=== PATIENT | female | born 1935 | race Caucasian/White ===

== ENCOUNTER 2019-10-03 08:01 | Outpatient (CLI) | payer MEDICARE, SELFPAY ==
--- NOTE | ~2019-10-03 | CT_ITS ---
EXAMINATION: CT abdomen pelvis w con EXAM DATE: 10/03/2019 08:37 INDICATION: Pyelonephritis. TECHNIQUE: Spiral CT of the abdomen and pelvis was performed following intravenous injection of 100 m L Omnipaque 350. Axial, coronal and sagittal images were reviewed. The dose-length product (DLP) fo r this examination was 367.56 mGy-cm. The exposure was tailored according to patient size (auto mA e xposure control), and iterative reconstruction (ASIR) was used as additional dose reduction technique . Comparison is made to prior examination from 07/11/2015. FINDINGS: The liver, spleen, adrenal glands and pancreas are unremarkable. The gallbladder is disten ded but otherwise unremarkable. There is no biliary duct dilation. Kidneys enhance symmetrically. Lo bular renal contours with regions of cortical scarring bilaterally probably from prior episodes of in fection. Mild enhancement of the urothelium to both renal pelvises without adjacent inflammation. A s mall region of right renal decreased cortical enhancement posteriorly, without volume loss as seen in the regions of scarring, and similar appearing region in the lower pole of the left kidney anteriorl y. No adjacent inflammation, but resolving bilateral pyelonephritis would explain this finding and th e mild renal urothelial enhancement. Uterus and bladder are unremarkable. There is no retroperitonea l or pelvic lymphadenopathy. There is mild scattered arteriosclerotic disease. The appendix is normal. The stomach and small bowel are unremarkable. There is moderate amount of c olonic stool. No free intraperitoneal gas. The heart is normal in size. There are no pericardial or pleural effusions. There is right basilar focal severe bronchiectasis involving the medial segmen t. There is right middle lobe granuloma. There are no osteoblastic or osteolytic lesions identified. There is small umbilical fat-containing hernia. IMPRESSION: 1. Mild bilateral renal pelvic urothelial enhancement, along with small ill-defined regions of decre ased renal cortical enhancement. Resolving or partially treated bilateral pyelonephritis would explai n these findings. 2. Regions of bilateral renal cortical scarring likely from prior episodes of pyelonephritis. 3. Right basilar medial segmental bronchiectasis. 4. Small umbilical hernia. Reviewed, dictated and finalized at location B. IMPRESSION: 1. Mild bilateral renal pelvic urothelial enhancement, along with small ill-de fined regions of decreased renal cortical enhancement. Resolving or partially t reated bilateral pyelonephritis would explain these findings. 2. Regions of bilateral renal cortical scarring likely from prior episodes of pyelonephritis. 3. Right basilar medial segmental bronchiectasis. 4. Small umbilical hernia.
[2019-10-03 08:26] LABS: Estimated Glomerular Filt Rate 53
== END 2019-10-03 08:02 | disposition home or self-care (01) ==
LOC: ANHIMG 08:03
DX: N12 Tubulo-interstitial nephritis, not specified as acute or chronic (principal); K42.9 Umbilical hernia without obstruction or gangrene; R91.8 Other nonspecific abnormal finding of lung field
CPT/HCPCS: 36415; 74177; Q9967

== ENCOUNTER 2019-12-02 08:48 | Outpatient (CLI) | payer MEDICARE, SELFPAY ==
--- NOTE | ~2019-12-02 | CT_ITS ---
EXAMINATION: CT abdomen pelvis w con DATE: 12/02/2019 09:35 INDICATION: Pyelonephritis TECHNIQUE: Computed tomography (CT) of the abdomen and pelvis was performed with 100 cc Omnipaque 350 intravenous contrast. The dose-length product was 419.39 mGy-cm. Automated exposure control and iter ative reconstruction technique were employed. COMPARISON: CT dated 10/03/2019. FINDINGS: There is right lower lobe bronchiectasis. There is bibasilar atelectasis. Calcified granulo ma right middle lobe. Heart size upper normal. No significant pleural or pericardial effusion. There is bilateral renal cortical scarring with multiple bilateral renal cysts. No definite evidence for residual pyelonephritis. Bladder is unremarkable. Fatty infiltration of the liver. Gallbladder is present. Nonobstructive bowel gas pattern. Small fat- containing umbilical hernia. Mild lumbar spondylosis.There is a 9 mm partially visualized right breas t nodule. IMPRESSION: 1. No acute abdominal abnormality. No definite evidence for residual pyelonephritis. 2: 9 mm right breast nodule. Correlation with diagnostic mammogram and right breast ultrasound recom mended. 3: Bilateral renal cortical thinning/scarring with bilateral renal cysts. 4: Right lower lobe bronchiectasis. Reviewed, dictated and finalized at location B. IMPRESSION: 1. No acute abdominal abnormality. No definite evidence for residual pyelonephr itis. 2: 9 mm right breast nodule. Correlation with diagnostic mammogram and right b reast ultrasound recommended. 3: Bilateral renal cortical thinning/scarring with bilateral renal cysts. 4: Right lower lobe bronchiectasis.
[2019-12-02 09:27] LABS: Estimated Glomerular Filt Rate 53
== END 2019-12-02 08:49 | disposition home or self-care (01) ==
DX: N10 Acute pyelonephritis (principal); R91.8 Other nonspecific abnormal finding of lung field
CPT/HCPCS: 74177; Q9967

== ENCOUNTER 2019-12-27 12:47 | Outpatient (CLI) | payer MEDICARE, SELFPAY ==
--- NOTE | ~2019-12-27 | MM_ITS ---
EXAMINATION: MM diagnostic dominic RT w adrian HISTORY: Right breast mass identified on CT TECHNIQUE: Craniocaudal, mediolateral, and mediolateral oblique 3-D tomosynthesis images of the right breast were performed and synthetic 2-D images were generated. CAD analysis was submitted and interp reted. COMPARISON: Prior mammograms dating back to 10/16/2007 BREAST PARENCHYMAL COMPOSITION: There are scattered areas of fibroglandular density. FINDINGS: There is a benign intramammary lymph node in the upper outer quadrant of the right breast c orresponding to the finding in question recent CT. This has a stable appearance dating back to 2007. No suspicious mass, calcification, or architectural distortion are identified. IMPRESSION: 1. No mammographic evidence of malignancy. 2. Recommend annual screening mammography while the patient remains in good health. BI-RADS Category 2: Benign finding(s). Reviewed, dictated and finalized at location A. ING MACHINE HELPER IMPRESSION: 1. No mammographic evidence of malignancy. 2. Recommend annual screening mammography while the patient remains in good hea lth. BI-RADS Category 2: Benign finding(s).
== END 2019-12-27 12:48 | disposition home or self-care (01) ==
LOC: ANHIMG 12:49
PROVIDERS: PCP Internal Medicine; Visit Provider Internal Medicine
DX: R92.8 Other abnormal and inconclusive findings on diagnostic imaging of breast (principal)
CPT/HCPCS: 77061; 77065; G0279

== ENCOUNTER 2020-01-25 15:31 | Emergency (ER) | payer MEDICARE, SELFPAY ==
--- NOTE | ~2020-01-25 | CT_ITS ---
EXAMINATION: CT abdomen pelvis w con INDICATION: Diarrhea and hematochezia TECHNIQUE: Computed tomographic images of the abdomen and pelvis were obtained after the administrati on of 100 cc of Omnipaque 350 intravenous contrast. The dose-length product (DLP) was 316.25 mGy-cm. Automated exposure control and iterative reconstruction technique were employed. COMPARISON: 12/02/2019 FINDINGS: Minimal dependent atelectasis is present in the lung bases. The heart size is normal. Calci fied coronary artery atherosclerosis is noted. There is a small sliding hiatal hernia The liver, sple en, pancreas, gallbladder, and adrenal glands are normal. Cysts of the kidneys measure up to 1.7 cm o n the right. No pathologically enlarged abdominal or pelvic lymph nodes are identified. There is no f ree intraperitoneal gas or evidence of bowel obstruction. There is calcified atherosclerosis. There i s diffuse wall thickening of the colon from the distal transverse colon through the rectum. The appen haroldo is normal. There is a fat-containing umbilical hernia. Mild lumbar spondylosis is noted. There ap pears to be a calcified fibroid of the uterine fundus. IMPRESSION: 1. Colitis from the distal transverse colon through the rectum. Reviewed, dictated and finalized at location A. [employer]
[2020-01-25 15:36] VITALS: BP 150/97; PULSE 72; RESP 18; TEMP 36.6; O2SAT 98
[2020-01-25 15:55] LABS: Basophils Absolute Auto 0.1 K/mm3 (0.0-0.1); Basophils Percent Auto 0.4 % (0.2-1.2); Eosinophils Absolute Auto 0.1 K/mm3 (0-0.3); Eosinophils Percent Auto 0.4 % (0-4.4); Hematocrit 38.8 % (37.0-47.0); Hemoglobin 12.6 g/dL (12.0-15.0); Immature Granulocyte Absolute 0.03 K/mm3 (0.00-0.031); Immature Granulocyte Percent A 0.2 % (0-0.5); Mean Corpuscular HGB Conc 32.5 g/dl (32-36); Mean Corpuscular Hemoglobin 29.8 pg (26-34); Mean Corpuscular Volume 91.7 fl (80-100); Mean Platelet Volume 9.8 fl (7.4-10.4); Monocytes Absolute Auto 1.1 K/mm3 (0.1-0.6); Monocytes Percent Auto 9.2 % (2.6-8.5); Neutrophils Absolute Auto 8.8 K/mm3 (1.3-6.7); Neutrophils Percent Auto 71.8 % (45.5-73.1); Platelet Count Result 293 k/mm3 (150-375); Red Blood Count 4.23 M/mm3 (4.2-5.4); Red Cell Distribution Width 14.5 % (11.5-14.5); White Blood Count 12.2 K/mm3 (4.5-10.0)
[2020-01-25 16:05] LABS: Prothrombin Time 13.4 Seconds (11.1-14.7)
[2020-01-25 16:08] LABS: Alanine Aminotransferase 19 U/L (4-35); Albumin Level 4.2 g/dL (3.5-5.1); Alkaline Phosphatase 82 U/L (38-126); Anion Gap 8 mmol/L (8-16); Aspartate Amino Transferase 33 U/L (14-36); Bilirubin,Total 0.3 mg/dL (0.2-1.3); Blood Urea Nitrogen 18 mg/dL (7-17); Calcium 9.8 mg/dL (8.4-10.2); Carbon Dioxide 28 mmol/L (22-30); Chloride 97 mmol/L (98-107); Estimated CRCL calculation 37 ml/min; Estimated Glomerular Filt Rate 60; Glucose 126 mg/dL (65-105); Potassium 4.2 mmol/L (3.4-5.0); Sodium 133 mmol/L (137-145)
[2020-01-25 16:10] VITALS: BP 135/69; PULSE 66
[2020-01-25 16:11] VITALS: BP 134/75; PULSE 68
[2020-01-25 16:13] VITALS: BP 121/71; PULSE 76
[2020-01-25 16:19] VITALS: BP 121/73; PULSE 63; RESP 18; O2SAT 98
[2020-01-25 17:10] VITALS: BP 124/68; PULSE 67; RESP 16; O2SAT 98
--- NOTE | 2020-01-25 17:43 | ED.GIBLEED ---
HPI - GI Bleed General Chief complaint: GI Bleed Stated complaint: blood in stool Time Seen by Provider: 01/25/20 15:40 History of Present Illness HPI Narrative: Patient is an 84-year-old female who presents ER with diarrhea. Referred here by her PCP. Reports this morning at 9 AM she started having loose watery stools. Occasionally they will be pink. No loss of consciousness. Worse with eating or drinking. No known sick contacts. No fevers or chills or sweats. She is on Eliquis was concerned about the blood in her stool. No nausea or vomiting or dizziness. She has not been on antibiotics recently. Related Data Home Medications Medication Instructions Recorded Confirmed amiodarone 01/25/20 amlodipine 01/25/20 apixaban [Eliquis] mg 01/25/20 clopidogrel 01/25/20 lisinopril 01/25/20 metoprolol tartrate 01/25/20 mirtazapine mg 01/25/20 pravastatin 01/25/20 Allergies Allergy/AdvReac Type Severity Reaction Status Date / Time No Known Allergies Allergy Verified 01/25/20 15:42 Review of Systems Review of Systems: All systems reviewed & are unremarkable except as noted in HPI and below Constitutional: Constitutional: Denies chills, Denies fever(s) and Denies weakness ENT: Denies nasal congestion and Denies sore throat Gastrointestinal: Gastrointestinal: Reports abdominal pain (Cramping), Reports diarrhea, Denies nausea and Denies vomiting PMFSH Past Medical History Medical History (Updated 01/25/20 @ 17:57 by Dheeraj Flores MD) Atrial fibrillation CVA (cerebral vascular accident) Hypertension Surgical History Surgical History (Updated 01/25/20 @ 17:57 by Dheeraj Flores MD) No history of previous surgery Social History Social History (Updated 01/25/20 @ 17:57 by Dheeraj Flores MD) Smoking status: Never smoker Exam Narrative: Exam Narrative: GENERAL: Well-appearing, well-nourished, and in no acute distress. HEAD: Normocephalic, atraumatic. CHEST: Clear to auscultation. No respiratory distress. HEART: Regular rate and rhythm. Normal peripheral pulses. ABDOMEN: Soft, nontender, nondistended. EXTREMITIES: Normal range of motion. No edema. SKIN: Warm, dry, no rash. NEURO: Alert and oriented x3. PSYCH: Normal mood and affect. Course Course Emergency Course: Discussed with Dr. Lloyd her PCP. F/u outpatient with rx for cipro and flagyl to tx colitis. Pt is on amiodarone so we will start on augmentin instead. No drop in hg or BP. Pt stable. Vital Signs Vital signs: Vital Signs Temperature 97.8 F 01/25/20 15:36 Pulse Rate 72 01/25/20 15:36 Respiratory Rate 18 01/25/20 15:36 Blood Pressure 150/97 H 01/25/20 15:36 Pulse Oximetry 98 01/25/20 15:36 Temperature 97.8 F 01/25/20 15:36 Pulse Rate 67 01/25/20 17:10 Respiratory Rate 16 01/25/20 17:10 Blood Pressure 124/68 01/25/20 17:10 Pulse Oximetry 98 01/25/20 17:10 MDM - GI Bleed Lab Data Result diagrams: 01/25/20 15:47 01/25/20 15:47 Labs: Lab Results 01/25/20 01/25/20 01/25/20 Range/Units 15:47 15:47 15:47 WBC 12.2 H (4.5-10.0) K/mm3 RBC 4.23 (4.2-5.4) M/mm3 Hgb 12.6 (12.0-15.0) g/dL Hct 38.8 (37.0-47.0) % MCV 91.7 (80-100) fl MCH 29.8 (26-34) pg MCHC 32.5 (32-36) g/dl RDW 14.5 (11.5-14.5) % Plt Count 293 (150-375) k/mm3 MPV 9.8 (7.4-10.4) fl Immature Gran % (Auto) 0.2 (0-0.5) % Neut % (Auto) 71.8 (45.5-73.1) % Lymph % (Auto) 18.0 L (18.3-44.2) % [place] % (Auto) 9.2 H (2.6-8.5) % Eos % (Auto) 0.4 (0-4.4) % Baso % (Auto) 0.4 (0.2-1.2) % Lymph # (Auto) 2.20 (0.9-3.2) K/mm3 [place] # (Auto) 1.1 H (0.1-0.6) K/mm3 Eos # (Auto) 0.1 (0-0.3) K/mm3 Baso # (Auto) 0.1 (0.0-0.1) K/mm3 Abs Immat Gran (auto) 0.03 (0.00-0.031) K/mm3 Absolute Neuts (auto) 8.8 H (1.3-6.7) K/mm3 Absolute Nucleated RBC 0.0 (0.0-0.012) K/mm3 Nucleated RBC % 0.0
[2020-01-25] MEDS: AMOXICILLIN/CLAVULANATE K 875-125 MG TAB 1 TABLET PO (18:18)
== END 2020-01-25 18:19 | disposition home or self-care (01) ==
PROVIDERS: Emergency Provider Emergency Medicine; PCP Internal Medicine
DX: K52.9 Noninfective gastroenteritis and colitis, unspecified (principal); I48.91 Unspecified atrial fibrillation; I10 Essential (primary) hypertension; Z86.73 Personal history of transient ischemic attack (TIA), and cerebral infarction without residual deficits
CPT/HCPCS: 36415; 74177; 80053; 85025; 85610; 85730; 86850; 86900; 86901; 99284; A9270; Q9967

== ENCOUNTER 2020-08-25 17:17 | Outpatient (CLI) | payer MEDICARE, SELFPAY ==
[2020-08-25 17:56] LABS: Basophils Percent Auto 0.4 % (0.2-1.2); Eosinophils Absolute Auto 0.2 K/mm3 (0-0.3); Eosinophils Percent Auto 1.6 % (0-4.4); Hematocrit 33.7 % (37.0-47.0); Hemoglobin 11.1 g/dL (12.0-15.0); Immature Granulocyte Absolute 0.05 K/mm3 (0.00-0.031); Immature Granulocyte Percent A 0.5 % (0-0.5); Lymphocytes Absolute Auto 1.99 K/mm3 (0.9-3.2); Mean Corpuscular HGB Conc 32.9 g/dl (32-36); Mean Corpuscular Hemoglobin 30.3 pg (26-34); Mean Corpuscular Volume 92.1 fl (80-100); Monocytes Absolute Auto 1.1 K/mm3 (0.1-0.6); Monocytes Percent Auto 11.1 % (2.6-8.5); Neutrophils Absolute Auto 6.2 K/mm3 (1.3-6.7); Neutrophils Percent Auto 65.4 % (45.5-73.1); Platelet Count Result 423 k/mm3 (150-375); Red Blood Count 3.66 M/mm3 (4.2-5.4); Red Cell Distribution Width 14.6 % (11.5-14.5); White Blood Count 9.5 K/mm3 (4.5-10.0)
[2020-08-25 18:03] LABS: Add Urine Microscopic? YES; Alanine Aminotransferase 19 U/L (4-35); Albumin Level 4.3 g/dL (3.5-5.1); Alkaline Phosphatase 58 U/L (38-126); Anion Gap 10 mmol/L (8-16); Appearance Urine Clear (Clear); Aspartate Amino Transferase 29 U/L (14-36); Bacteria Urine Trace /hpf; Bilirubin Urine Negative (Negative); Bilirubin,Total 0.2 mg/dL (0.2-1.3); Blood Urea Nitrogen 29 mg/dL (7-17); Blood Urine Negative (Negative); Calcium 9.8 mg/dL (8.4-10.2); Carbon Dioxide 25 mmol/L (22-30); Chloride 91 mmol/L (98-107); Color Urine Yellow (Yellow); Estimated Glomerular Filt Rate 60; Glucose 124 mg/dL (65-105); Glucose Urine UA Negative (Negative); Ketones Urine Negative (Negative); Leukocyte Esterase Ur Negative LEU/UL (NEGATIVE); Mucus Urine Rare /lpf; Nitrate Urine Negative (Negative); Potassium 4.5 mmol/L (3.4-5.0); Protein Urine Negative (Negative); RBC Urine 0-2 /hpf (0-2); Sodium 126 mmol/L (137-145); Urobilinogen Urine Negative mg/dL (<2.0); WBC Urine 0-3 /hpf (0-3)
[2020-08-25 18:46] LABS: Erythrocyte Sedimentation Rate 49 mm/hr (0-20)
== END 2020-08-25 17:18 | disposition home or self-care (01) ==
LOC: ANHLAB 17:23
PROVIDERS: PCP Internal Medicine
DX: I25.10 Atherosclerotic heart disease of native coronary artery without angina pectoris (principal); I48.91 Unspecified atrial fibrillation; N39.0 Urinary tract infection, site not specified; Z86.73 Personal history of transient ischemic attack (TIA), and cerebral infarction without residual deficits; Z95.5 Presence of coronary angioplasty implant and graft
CPT/HCPCS: 36415; 80053; 81001; 85025; 85652

== ENCOUNTER 2020-11-17 16:32 | Emergency (ER) | payer MEDICARE, SELFPAY ==
--- NOTE | ~2020-11-17 | CT_ITS ---
EXAMINATION: CT abdomen pelvis wo con EXAM DATE: 11/17/2020 17:55 INDICATION: Bilateral flank pain. low back pain. TECHNIQUE: Spiral CT of the abdomen and pelvis was performed without contrast. Axial, coronal and s agittal images of the abdomen and pelvis were reviewed. The dose-length product (DLP) for this exami [facility] was 203.06 mGy-cm. The exposure was tailored according to patient size (auto mA exposure cont rol), and iterative reconstruction (ASIR) was used as additional dose reduction technique. Comparison is made to prior examination from 01-25-2020. FINDINGS: The liver, spleen, adrenal glands and pancreas are unremarkable. Gallbladder is unremarkab le. No biliary obstruction. There is no nephrolithiasis or hydronephrosis. The uterus is unremark able. The bladder is unremarkable. There is no retroperitoneal or pelvic lymphadenopathy. Modera te umbilical fat-containing hernia. There are no findings to suggest appendicitis. There is small sliding gastroesophageal hiatal hernia . There is moderate amount of colonic stool. No free intraperitoneal gas. The heart is normal in size. There are no pericardial or pleural effusions. Basilar bronchiectasis. There are no osteobl astic or osteolytic lesions identified. IMPRESSION: 1. No acute intra-abdominal findings. 2. Moderate colonic stool. Reviewed, dictated and finalized at location A.
[2020-11-17 16:44] VITALS: BP 169/72; PULSE 66; RESP 16; O2SAT 98
[2020-11-17 17:05] LABS: Basophils Percent Auto 0.5 % (0.2-1.2); Eosinophils Absolute Auto 0.1 K/mm3 (0-0.3); Eosinophils Percent Auto 1.1 % (0-4.4); Hematocrit 40.1 % (37.0-47.0); Immature Granulocyte Absolute 0.02 K/mm3 (0.00-0.031); Immature Granulocyte Percent A 0.3 % (0-0.5); Lymphocytes Percent Auto 27.2 % (18.3-44.2); Mean Corpuscular HGB Conc 32.4 g/dl (32-36); Mean Corpuscular Hemoglobin 30.8 pg (26-34); Mean Platelet Volume 9.5 fl (7.4-10.4); Monocytes Absolute Auto 0.8 K/mm3 (0.1-0.6); Monocytes Percent Auto 12.5 % (2.6-8.5); Neutrophils Absolute Auto 3.7 K/mm3 (1.3-6.7); Neutrophils Percent Auto 58.4 % (45.5-73.1); Platelet Count Result 260 k/mm3 (150-375); Red Blood Count 4.22 M/mm3 (4.2-5.4); Red Cell Distribution Width 13.5 % (11.5-14.5); White Blood Count 6.3 K/mm3 (4.5-10.0)
[2020-11-17 17:19] LABS: Alanine Aminotransferase 29 U/L (4-35); Albumin Level 4.8 g/dL (3.5-5.1); Alkaline Phosphatase 75 U/L (38-126); Anion Gap 8 mmol/L (8-16); Aspartate Amino Transferase 40 U/L (14-36); Bilirubin,Total 0.3 mg/dL (0.2-1.3); Blood Urea Nitrogen 15 mg/dL (7-17); Calcium 9.4 mg/dL (8.4-10.2); Carbon Dioxide 28 mmol/L (22-30); Chloride 94 mmol/L (98-107); Estimated CRCL calculation 33 ml/min; Estimated Glomerular Filt Rate 53; Glucose 113 mg/dL (65-110); Potassium 4.7 mmol/L (3.4-5.0); Sodium 130 mmol/L (137-145)
--- NOTE | 2020-11-17 17:37 | ED.GENADULT ---
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 Patient has a history of upper back injury for which she has seen PT but does not generally have pain in her lower back. Patient's home health aide Conchis also states that today the patient became incontinent of her urine 3 times which is not typical for her. Patient reports that the pain is sharp and radiating down her right side. She denies a known history of kidney stones. She had one episode of vomiting but has not had any persistent vomiting, nausea, fever, chills or body aches. Patient denies any changes to her bowels. Patient denies any new medications or ingestions. Related Data Home Medications Medication Instructions Recorded Confirmed amiodarone 01/25/20 amlodipine 01/25/20 apixaban [Eliquis] mg 01/25/20 clopidogrel 01/25/20 lisinopril 01/25/20 metoprolol tartrate 01/25/20 mirtazapine mg 01/25/20 pravastatin 01/25/20 Allergies Allergy/AdvReac Type Severity Reaction Status Date / Time No Known Allergies Allergy Verified 11/17/20 16:46 Review of Systems Review of Systems: CONSTITUTIONAL: Denies fever, chills, or sweats. EYES: Denies visual changes, redness, or discharge. ENT: Denies rhinorrhea, congestion, sore throat, or otalgia. CARDIOVASCULAR: Denies chest pain, palpitations, or edema. RESPIRATORY: Denies cough or dyspnea. GASTROINTESTINAL: Reports one episode of vomiting denies abdominal pain, nausea, or diarrhea. GENITOURINARY: Reports urinary incontinence denies dysuria or hematuria. SKIN: Denies rash or itching. MUSCULOSKELETAL: Reports right flank pain denies back pain, joint pain, or myalgia. NEUROLOGIC: Denies headache, numbness, dizziness, or weakness. PSYCHIATRIC: Denies anxiety or depression. [facility] Past Medical History Medical History (Updated 11/17/20 @ 19:20 by Alisa Hollis PA-C) Atrial fibrillation CVA (cerebral vascular accident) Hypertension Surgical History Surgical History (Updated 01/25/20 @ 17:57 by Dheeraj Flores MD) No history of previous surgery Social History Social History (Updated 01/25/20 @ 17:57 by Dheeraj Flores MD) Smoking status: Never smoker Exam Narrative: GENERAL: Well-appearing, well-nourished, and in no acute distress. HEAD: Normocephalic, atraumatic. EYES: PERRLA and EOMI. ENT: Nares clear, no rhinorrhea or epistaxis. Mucous membranes moist. Oropharynx without tonsillar hypertrophy exudate or other lesions. Bilateral TMs pearly marshall nonbulging NECK: Supple. No adenopathy or masses. No carotid bruits or JVD CHEST: Clear to auscultation. No respiratory distress. No wheezes rales or rhonchi HEART: Regular rate and rhythm. No murmur heard. Normal peripheral pulses. ABDOMEN: Soft, nontender, nondistended, normal active bowel sounds. EXTREMITIES: Normal range of motion. No edema. SKIN: Warm, dry, no rash. NEURO: No focal deficits. Alert and oriented x3. PSYCH: Normal mood and affect. Course Vital Signs Vital signs: Vital Signs Pulse Rate 66 11/17/20 16:44 Respiratory Rate 16 11/17/20 16:44 Blood Pressure 169/72 H 11/17/20 16:44 Pulse Oximetry 98 11/17/20 16:44 Pulse Rate 59 L 11/17/20 20:31 Respiratory Rate 18 11/17/20 20:31 Blood Pressure 139/54 L 11/17/20 20:31 Pulse Oximetry 97 11/17/20 20:31 Medical Decision Making MDM Narrative Medical decision making narrative: Patient's lab work and CT are negative for acute findings. It is suspected that patient pain is musculoskeletal. Patient has been instructed to follow-up with her primary care for further investigation into her discomfo
[2020-11-17] MEDS: MORPHINE SULFATE (*CRX) 2 MG/ML INJ IV PUSH (17:38)
[2020-11-17 17:43] LABS: Add Urine Microscopic? NO; Appearance Urine Clear (Clear); Bilirubin Urine Negative (Negative); Blood Urine Negative (Negative); Color Urine Colorless (Yellow); Glucose Urine UA Negative (Negative); Ketones Urine Negative (Negative); Leukocyte Esterase Ur Negative LEU/UL (Negative); Nitrate Urine Negative (Negative); Protein Urine Negative (Negative); Urobilinogen Urine Negative mg/dL (<2.0)
[2020-11-17 17:49] LABS: Specific Grav Ur 1.004 (1.001-1.035)
[2020-11-17] MEDS: HYDROcodone/acetaminophen (*CRX) 5-325 MG TABLET 1 TAB PO (19:15)
[2020-11-17] MEDS: ONDANSETRON HCL ODT 4 MG TABLET PO (19:16)
[2020-11-17] MEDS: HYDROmorphone HCL INJ (*CRX) 1 MG/ML SYR 0.5 MG IV PUSH (20:27)
[2020-11-17 20:31] VITALS: BP 139/54; PULSE 59; RESP 18; O2SAT 97
[2020-11-17] MEDS: LIDOCAINE 5% PATCH 1 PATCH TRANSDERM (21:15)
[2020-11-17 21:16] VITALS: BP 147/54; PULSE 55; RESP 20; O2SAT 96
== END 2020-11-17 22:11 | disposition home or self-care (01) ==
PROVIDERS: Physician Assistant; Emergency Provider Emergency Medicine; PCP Internal Medicine
DX: M54.16 Radiculopathy, lumbar region (principal); I48.91 Unspecified atrial fibrillation; I10 Essential (primary) hypertension; Z86.73 Personal history of transient ischemic attack (TIA), and cerebral infarction without residual deficits
CPT/HCPCS: 36415; 74176; 80053; 81003; 85025; 96374; 96375; 99284; A9270; J1170; J2270

== ENCOUNTER 2021-04-19 16:22 | Outpatient (CLI) | payer MEDICARE, SELFPAY ==
[2021-04-19 16:53] LABS: Hematocrit 37.9 % (37.0-47.0); Hemoglobin 12.1 g/dL (12.0-15.0); Mean Corpuscular HGB Conc 31.9 g/dl (32-36); Mean Corpuscular Hemoglobin 31.3 pg (26-34); Mean Corpuscular Volume 98.2 fl (80-100); Mean Platelet Volume 9.4 fl (7.4-10.4); Platelet Count Result 258 k/mm3 (150-375); Red Blood Count 3.86 M/mm3 (4.2-5.4); Red Cell Distribution Width 13.6 % (11.5-14.5); White Blood Count 8.1 K/mm3 (4.5-10.0)
[2021-04-19 17:02] LABS: Alanine Aminotransferase 58 U/L (4-35); Albumin Level 4.4 g/dL (3.5-5.1); Alkaline Phosphatase 102 U/L (38-126); Anion Gap 9 mmol/L (8-16); Aspartate Amino Transferase 62 U/L (14-36); Bilirubin,Total 0.2 mg/dL (0.2-1.3); Blood Urea Nitrogen 16 mg/dL (7-17); Calcium 8.9 mg/dL (8.4-10.2); Carbon Dioxide 25 mmol/L (22-30); Chloride 95 mmol/L (98-107); Estimated Glomerular Filt Rate 43; Glucose 90 mg/dL (65-110); Potassium 4.8 mmol/L (3.4-5.0); Sodium 129 mmol/L (137-145)
== END 2021-04-19 16:23 | disposition home or self-care (01) ==
PROVIDERS: PCP Internal Medicine
DX: E87.1 Hypo-osmolality and hyponatremia (principal)
CPT/HCPCS: 36415; 80053; 83735; 85027

== ENCOUNTER 2021-05-17 15:00 | Outpatient (RCR) | payer SELFPAY ==
[2021-03-30 15:58] VITALS: PULSE 68
== END 2021-05-24 18:08 | disposition short-term general hospital (02) ==
LOC: ANHCPREHAB 15:00
PROVIDERS: PCP Internal Medicine; Visit Provider Internal Medicine
DX: I50.9 Heart failure, unspecified (principal)
CPT/HCPCS: 99199